=== PATIENT | female | born 1965 | race Caucasian/White ===

== ENCOUNTER 2020-03-21 00:32 | Observation (INO) | payer BC, SELFPAY ==
[2020-03-21] VITALS (17 sets, daily range): BP systolic 94–144; BP diastolic 62–104; PULSE 74–123; RESP 15–22; TEMP 36.2–36.7; O2SAT 7–98; BMI 43.1
--- NOTE | 2020-03-21 00:54 | ECG_ITS ---
Measurements Intervals [place] Rate: 104 P: 62 MT: 147 QRS: 26 QRSD: 85 T: 51 QT: 317 QTc: 418 Interpretive Statements SINUS TACHYCARDIA MINIMAL Q WAVES- INFERIOR LEADS BASELINE ARTIFACT- II, III, AVF BORDERLINE ECG Electronically Signed On 03-21-2020 7:01:52 CDT by Nile Bartlett D.O.
--- NOTE | 2020-03-21 00:55 | ED.NAVMDI ---
HPI - Nausea/Vomiting/Diarrhea General Chief complaint: Nausea/Vomiting/Diarrhea Stated complaint: throwing up blood Time Seen by Provider: 03/21/20 00:40 Source: patient Mode of arrival: ambulatory Limitations: no limitations History of Present Illness HPI Narrative: This patient is a 54 year old female who presents for evaluation of hematemesis. Patient states 2 hours ago she developed nausea and she started throwing up dark blood. She reports multiple episodes. She also noticed dark stool this morning. She has no previous history of PUD, gastritis. She does take aspirin 162 mg daily . She denies abdominal pain, dizziness, chest pain or sob. MD elicited complaint: nausea and vomiting Onset (ago): hour(s) (2) Description of vomiting: bloody Associated nausea: Yes Associated abdominal pain: No Related Data Home Medications Medication Instructions Recorded Confirmed aspirin 162 mg PO DAILY 03/21/20 03/21/20 ibuprofen-diphenhydramine HCl 2 cap PO HS PRN 03/21/20 03/21/20 [Ibuprofen PM] Allergies Allergy/AdvReac Type Severity Reaction Status Date / Time No Known Allergies Allergy Mild Verified 03/21/20 01:53 Review of Systems Review of Systems: All systems reviewed & are unremarkable except as noted in HPI and below Constitutional: Constitutional: Denies chills, Reports fatigue and Denies fever(s) Cardiovascular: Cardiovascular: Denies chest pain Respiratory: Respiratory: Denies cough and Denies dyspnea Gastrointestinal: Gastrointestinal: Denies abdominal pain, Reports nausea and Reports vomiting PMFSH Past Medical History Medical History (Updated 03/21/20 @ 05:18 by Anali Toledo MD) Diverticulitis Surgical History Surgical History Hx of colectomy Family History Family History (Updated 03/21/20 @ 04:35 by Bridget Raygoza RN) Sibling Congestive heart failure Mother Chronic obstructive pulmonary disease Father Lung cancer Social History Social History Smoking status: Never smoker Alcohol intake: current Drinks per week: 2 Alcohol use details: 2 -3 times a week Substance use: never Substance use type: does not use Gender identity (if verbalized by the patient): Female Spiritual care concerns: No Exam Narrative: Exam Narrative: GENERAL: Well-appearing, well-nourished, and in no acute distress. HEAD: Normocephalic, atraumatic EYES: PERRLA and EOMI, conjunctiva clear without discharge THROAT:Mucous membranes moist, Oropharynx normal without erythema, exudate, peritonsillar swelling or fluctuance NECK: Supple, without lymphadenopathy or mass RESPIRATORY: No respiratory distress, Airway patent, Respirations non-labored, Clear to auscultation without rales, rhonchi or wheeze HEART: Regular rate and rhythm. No murmur heard. Normal peripheral pulses. ABDOMEN: Soft, nontender, nondistended, normal active bowel sounds. No masses. No rebound or guarding, No organomegaly. EXTREMITIES: No edema, normal strength with full range of motion. SKIN: Warm, dry, normal color without rash NEURO: Alert and oriented x3. CN 2-12 grossly intact. No focal deficits. PSYCH: Normal mood and affect. GI: Rectal Exam: heme positive stool Course Consultations Consultation #1: I have discussed case with DR. James Finnegna, he will consult and no further recommendations Date: 03/21/20 Time: 02:32 Consultation #2: I have discussed case with DR. Guerra and he accepts admission. Date: 03/21/20 Time: 02:32 Vital Signs Vital signs: Vital Signs Temperature 97.8 F 03/21/20 00:34 Pulse Rate 115 H 03/21/20 00:34 Respiratory Rate 20 03/21/20 00:34 Blood Pressure 144/91 H 03/21/20 00:34 Pulse Oximetry 98 03/21/20 00:34 Temperature 98.0 F 03/21/20 03:40 Pulse Rate 96 03/21/20 03:40 Respiratory Rate 18 03/21/20 03:40 Blood Pressure 116/64 03/21
[2020-03-21 01:26] LABS: Basophils Absolute Auto 0.1 K/mm3 (0.0-0.1); Basophils Percent Auto 0.5 % (0.2-1.2); Eosinophils Absolute Auto 0.1 K/mm3 (0-0.3); Eosinophils Percent Auto 0.6 % (0-4.4); Hematocrit 36.6 % (37.0-47.0); Immature Granulocyte Percent A 0.6 % (0-0.5); Lymphocytes Absolute Auto 3.46 K/mm3 (0.9-3.2); Lymphocytes Percent Auto 21.1 % (18.3-44.2); Mean Corpuscular HGB Conc 32.8 g/dl (32-36); Mean Corpuscular Hemoglobin 31.4 pg (26-34); Mean Corpuscular Volume 95.8 fl (80-100); Mean Platelet Volume 10.4 fl (7.4-10.4); Monocytes Absolute Auto 0.8 K/mm3 (0.1-0.6); Monocytes Percent Auto 5.1 % (2.6-8.5); Neutrophils Absolute Auto 11.8 K/mm3 (1.3-6.7); Neutrophils Percent Auto 72.1 % (45.5-73.1); Platelet Count Result 383 k/mm3 (150-375); Red Blood Count 3.82 M/mm3 (4.2-5.4); Red Cell Distribution Width 12.8 % (11.5-14.5); White Blood Count 16.4 K/mm3 (4.5-10.0)
[2020-03-21] MEDS: ONDANSETRON INJ 4 MG/2 ML VIAL IV PUSH (01:29)
[2020-03-21] MEDS: PANTOPRAZOLE SODIUM IV 40 MG VIAL 80 MG IV PUSH (01:30)
[2020-03-21] MEDS: SODIUM CHLORIDE 0.9% IV 1,000 ML 999 ML IV CONT (01:30)
[2020-03-21 01:32] LABS: Prothrombin Time 12.7 Seconds (11.1-14.7)
[2020-03-21 01:33] LABS: Partial Thromboplastin Time 24.8 SECONDS (22.3-36.8)
[2020-03-21 01:41] LABS: Alanine Aminotransferase 21 U/L (4-35); Albumin Level 4.5 g/dL (3.5-5.1); Alkaline Phosphatase 92 U/L (38-126); Anion Gap 9 mmol/L (8-16); Aspartate Amino Transferase 32 U/L (14-36); Bilirubin,Total 0.6 mg/dL (0.2-1.3); Blood Urea Nitrogen 34 mg/dL (7-17); Calcium 9.4 mg/dL (8.4-10.2); Carbon Dioxide 22 mmol/L (22-30); Chloride 106 mmol/L (98-107); Estimated Glomerular Filt Rate > 60; Glucose 143 mg/dL (65-105); Potassium 4.5 mmol/L (3.4-5.0); Sodium 137 mmol/L (137-145)
--- NOTE | 2020-03-21 03:38 | PC.NURSE ---
This patient, Chaya Muñoz, was admitted to 3 [facility] Surg Room 307-01. Patient/family oriented to hospital policies and general routines including ID bracelet, bed and alarms, visiting hours, pain management, procedures, bathroom and other care routines, personal items, smoking policy, room service/diet, and visiting hours. Valuables list has been completed. Information on how to activate the Rapid Response Team has been discussed. Patient/Family are encouraged to report perceived risks to care and to ask questions if they do not understand what they are told or what they should do.
[2020-03-21 03:42] LABS: Hematocrit 32.6 % (37.0-47.0); Hemoglobin 10.7 g/dL (12.0-15.0)
[2020-03-21] MEDS: LACTATED RINGERS 1,000 ML 125 ML IV CONT (03:45)
[2020-03-21 08:42] LABS: Hematocrit 30.4 % (37.0-47.0)
--- NOTE | 2020-03-21 08:59 | WPDGICN ---
Assessment and Plan Assessment and plan (1) Melena: Code(s): K92.1 - Melena Status: Acute Assessment and Plan: will proceed with urgent EGD, continue with ppi and discontinue nsaid's and aspirin trend h/h and continue with supportive care (2) Acute blood loss anemia: Code(s): D62 - Acute posthemorrhagic anemia Status: Acute Assessment and Plan: here with upper gib, continue to monitor (3) Coffee ground emesis: Code(s): K92.0 - Hematemesis Status: Acute Assessment and Plan: already on ppi egd to assess if esophagitis, ulcers, etc GI Consult Note Consult date/time: 03/21/20 08:59 Reason for consult: hematemesis and melena HPI: Chaya Muñoz is a 54 year old female with history of diverticulitis s/p partial colectomy here with new onset of coffee ground emesis last night and also dark tarry stools consistent with melena. She never had GIB. She uses aspirin and also normally takes motrin-pm for sleeping. Denies abdominal pain. Never had EGD. Her Hb was 12 and repeat 10, bun 34, normal inr and lft's, platelets 383. She is hemodynamically stable now and was admitted to the floor. Review of Systems Constitutional: Constitutional: Reports fatigue and Denies headache(s) Eyes: Eyes: Denies blurry vision ENT: Reports Normal hearing present, Denies headache(s) and Denies neck pain Cardiovascular: Cardiovascular: Denies chest pain and Denies dyspnea Respiratory: Respiratory: Denies dyspnea Gastrointestinal: Gastrointestinal: Reports melena, Reports nausea and Reports vomiting Genitourinary: Genitourinary: Denies dysuria Musculoskeletal: Musculoskeletal: Denies neck pain Integumentary/Breasts: Skin/Breast: Denies dry skin Neurologic: Reports Normal hearing present, Denies headache(s) and Denies weakness Psychiatric: Psychiatric: Denies anxiety Endocrine: Endocrine: Denies change in body appearance Hematologic/Lymphatic: Hematologic/Lymphatic: Denies easy bleeding Allergic/Immunologic: Allergic/Immunologic: Denies urticaria PMF Family History Family History (Updated 03/21/20 @ 04:35 by Bridget Raygoza RN) Sibling Congestive heart failure Mother Chronic obstructive pulmonary disease Father Lung cancer Social History Social History Smoking status: Never smoker Alcohol intake: current Drinks per week: 2 Alcohol use details: 2 -3 times a week Substance use: never Substance use type: does not use Gender identity (if verbalized by the patient): Female Spiritual care concerns: No Meds Home Medications and Allergies Home Medications Medication Instructions Recorded Confirmed Type aspirin 162 mg PO DAILY 03/21/20 03/21/20 History ibuprofen-diphenhydramine HCl 2 cap PO HS PRN 03/21/20 03/21/20 History [Ibuprofen PM] Allergies Allergy/AdvReac Type Severity Reaction Status Date / Time No Known Allergies Allergy Mild Verified 03/21/20 01:53 Vital Signs Vital Signs - 24 hr 03/21/20 00:34 03/21/20 01:20 03/21/20 01:23 Temperature 97.8 F Pulse Rate 115 H 106 H 110 H Respiratory Rate 20 Blood Pressure 144/91 H 139/88 144/104 H Pulse Oximetry 98 97 03/21/20 01:25 03/21/20 01:27 03/21/20 01:28 Temperature Pulse Rate 123 H Respiratory Rate Blood Pressure 144/104 H 94/69 L 94/69 L Pulse Oximetry 97 98 03/21/20 01:30 03/21/20 02:01 03/21/20 03:21 Temperature Pulse Rate 103 H 100 Respiratory Rate 19 16 Blood Pressure 117/84 117/76 117/86 Pulse Oximetry 96 96 97 03/21/20 03:40 Temperature 98.0 F Pulse Rate 96 Respiratory Rate 18 Blood Pressure 116/64 Pulse Oximetry 98 Exam Const: General: no acute distress Other: she is resting in bed HENMT: General nose exam: Normal nares present Eyes: General: appearance normal, both eyes and all related structures Neck: Neck: no JVD Resp: Auscultation: clear to auscultation
[2020-03-21] MEDS: LACTATED RINGERS 1,000 ML 150 ML IV CONT (10:26)
--- NOTE | 2020-03-21 10:37 | WPDANESEPPF ---
Anes - Initial Pre Proc Eval Procedure: Operation Date: 03/21/20 11:15 Proposed Procedures p Esophagogastroduodenoscopy - Luiz Baez MD Date/Time: 03/21/20 10:37 Surgeon: Lito Aranda PA-C Pre Op Diagnosis: hematemesis Patient Data Age: 54 Gender: F Height: 5 ft 1 in Weight: 103.6 kg Last Vital Signs Temp 98 F 03/21/20 10:29 Pulse 87 03/21/20 10:29 Resp 20 03/21/20 10:29 BP 120/70 03/21/20 10:29 Pulse Ox 97 03/21/20 10:29 Allergies Allergy/AdvReac Type Severity Reaction Status Date / Time No Known Allergies Allergy Mild Verified 03/21/20 10:27 Home Medications Medication Instructions Recorded Confirmed Type aspirin 162 mg PO DAILY 03/21/20 03/21/20 History ibuprofen-diphenhydramine HCl 2 cap PO HS PRN 03/21/20 03/21/20 History [Ibuprofen PM] Laboratory Tests 03/21/20 03/21/20 03/21/20 01:17 01:17 01:17 WBC 16.4 K/mm3 H K/mm3 (4.5-10.0) RBC 3.82 M/mm3 L M/mm3 (4.2-5.4) Hgb 12.0 g/dL g/dL (12.0-15.0) Hct 36.6 % L % (37.0-47.0) MCV 95.8 fl fl (80-100) MCH 31.4 pg pg (26-34) MCHC 32.8 g/dl g/dl (32-36) RDW 12.8 % % (11.5-14.5) Plt Count 383 k/mm3 H k/mm3 (150-375) MPV 10.4 fl fl (7.4-10.4) Immature Gran % (Auto) 0.6 % H % (0-0.5) Neut % (Auto) 72.1 % % (45.5-73.1) Lymph % (Auto) 21.1 % % (18.3-44.2) [place] % (Auto) 5.1 % % (2.6-8.5) Eos % (Auto) 0.6 % % (0-4.4) Baso % (Auto) 0.5 % % (0.2-1.2) Lymph # (Auto) 3.46 K/mm3 H K/mm3 (0.9-3.2) [place] # (Auto) 0.8 K/mm3 H K/mm3 (0.1-0.6) Eos # (Auto) 0.1 K/mm3 K/mm3 (0-0.3) Baso # (Auto) 0.1 K/mm3 K/mm3 (0.0-0.1) Abs Immat Gran (auto) 0.10 K/mm3 H K/mm3 (0.00-0.031) Absolute Neuts (auto) 11.8 K/mm3 H K/mm3 (1.3-6.7) Absolute Nucleated RBC 0.0 K/mm3 K/mm3 (0.0-0.012) Nucleated RBC % 0.0 % % (0.0-0.2) PT 12.7 Seconds Seconds (11.1-14.7) INR 1.0 APTT 24.8 SECONDS SECONDS (22.3-36.8) Sodium 137 mmol/L mmol/L (137-145) Potassium 4.5 mmol/L mmol/L (3.4-5.0) Chloride 106 mmol/L mmol/L (98-107) Carbon Dioxide 22 mmol/L mmol/L (22-30) Anion Gap 9 mmol/L mmol/L (8-16) BUN 34 mg/dL H mg/dL (7-17) Creatinine 0.70 mg/dL mg/dL (0.7-1.0) Estim Creat Clear Calc Not Reportable Estimated GFR > 60 (59 - ) Glucose 143 mg/dL H mg/dL (65-105) Calcium 9.4 mg/dL mg/dL (8.4-10.2) Total Bilirubin 0.6 mg/dL mg/dL (0.2-1.3) AST 32 U/L U/L (14-36) ALT 21 U/L U/L (4-35) Alkaline Phosphatase 92 U/L U/L (38-126) Total Protein 8.0 g/dL g/dL (6.3-8.2) Albumin 4.5 g/dL g/dL (3.5-5.1) Blood Type Antibody Screen 03/21/20 03/21/20 03/21/20 01:23 03:17 08:01 WBC RBC Hgb 10.7 g/dL L g/dL 10.0 g/dL L g/dL (12.0-15.0) (12.0-15.0) Hct 32.6 % L % 30.4 % L % (37.0-47.0) (37.0-47.0) MCV MCH MCHC RDW Plt Count MPV Immature Gran % (Auto) Neut % (Auto) Lymph % (Auto) [place] % (Auto) Eos % (Auto) Baso % (Auto) Lymph # (Auto) [place] # (Auto) Eos # (Auto) Baso # (Auto) Abs Immat Gran (auto) Absolute Neuts (auto) Absolute Nucleated RBC Nucleated RBC % PT INR APTT Sodium Potassium Chloride Carbon Dioxide Anion Gap BUN Creati
--- NOTE | 2020-03-21 11:22 | PC.NURSE ---
pt left to endo at 1010.
--- NOTE | 2020-03-21 13:34 | PM.IMHP ---
H&P: HPI History of Present Illness Date/Time: 03/21/20 13:34 Chief complaint: hematemesis Narrative: Chaya Muñoz is a pleasant 54 year old female with history of diverticulitis s/p colectomy who presented to the ED just after midnight on 03/21 with complaints of hematemesis. Patient states that this started roughly at 8:45 pm on 03/20. She states it started as light red in color then turned to dark and coffee-ground appearing emesis. She also noted that her stools were dark in color the morning of 03/20, then was dark and tarry on evening of 03/21. She notes taking daily 162 aspirin and daily motrin-pm. She drinks 1-2 alcoholic beverages a week. Denies history of PUD or GIB. She denies any nausea or abdominal surrounding her episodes. Her hematemesis has since resolved. She had a EGD per Dr. Ramirez which found severe erosive esophagitis and gastropathy; biopsies were taken. Patient has no complaints at the moment. Denies f/c/s, myalgias/arthralgias, headaches, dizziness, lightheadedness, cp/palpitations, sob/cough, current n/v/d/c, abd pain, dysuria, hematuria, cloudy urine, calf pain/swelling. Review of Systems Review of Systems: All systems reviewed & are unremarkable except as noted in HPI and below PMFSH Past Medical History Medical History Acute blood loss anemia Coffee ground emesis Diverticulitis Melena Surgical History Surgical History Hx of colectomy Family History Family History Sibling Congestive heart failure Mother Chronic obstructive pulmonary disease Father Lung cancer Social History Social History Social History: Patient lives at home with her long time boyfriend. She designates Eddie Velez as her surrogate MDM. She wishes to be [employer]. 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 Her PCP is Dr. Ke Munson Smoking status: Never smoker Alcohol intake: current Drinks per week: 2 Alcohol use details: 2 -3 times a week Substance use: never Substance use type: does not use Gender identity (if verbalized by the patient): Female Spiritual care concerns: No Meds Home Medications and Allergies Home Medications Medication Instructions Recorded Confirmed Type aspirin 162 mg PO DAILY 03/21/20 03/21/20 History ibuprofen-diphenhydramine HCl 2 cap PO HS PRN 03/21/20 03/21/20 History [Ibuprofen PM] Allergies Allergy/AdvReac Type Severity Reaction Status Date / Time No Known Allergies Allergy Mild Verified 03/21/20 10:27 Vital Signs Last Vital Signs Temp 98 F 03/21/20 10:29 Pulse 76 03/21/20 12:26 Resp 18 03/21/20 12:26 BP 108/63 03/21/20 12:26 Pulse Ox 7 L 03/21/20 12:26 Exam Narrative: Exam Narrative: Patient lying supine in bed with head raised at time of visit Const: General: cooperative, comfortable, no acute distress, well developed, alert and awake Nutritional Appearance: obese Orientation/consciousness: patient oriented x3 HENMT: Head: normocephalic and atraumatic General nose exam: Normal nares present Face and sinus: face symmetric Mouth: Yes moist mucous membranes Eyes: General: appearance normal, both eyes and all related structures EOM: EOMs intact bilaterally Neck: Neck: trachea midline and supple Resp: Effort & Inspection: normal respiratory effort Auscultation: clear to auscultation bilaterally Cardio: Rate: regular rate Rhythm: regular rhythm Heart sounds: no murmurs GI: Inspection: obesity GI Palp: No abdominal tenderness and Yes Soft to palpation Auscultation: normal bowel sounds Skin: General skin exam: normal color and no rashes or lesions noted Neuro: General: patient oriented x3, moves all extremities and no focal motor deficits
--- NOTE | 2020-03-21 14:35 | PC.NURSE ---
pt arrived back to unit at 1240 a/o x3, no distress, gag reflex intact ice water given. denies any pain.
[2020-03-21 15:14] LABS: Hematocrit 29.1 % (37.0-47.0); Hemoglobin 9.8 g/dL (12.0-15.0)
[2020-03-21] MEDS: SUCRALFATE SUSP 100 MG/ML 10 ML UDC 1000 MG PO ×2 (17:07→20:46)
[2020-03-21] MEDS: PANTOPRAZOLE SODIUM IV 40 MG VIAL IV PUSH (20:46)
[2020-03-21 22:52] LABS: Glucose Point of Care 102 (65-105)
[2020-03-22] MEDS: SUCRALFATE SUSP 100 MG/ML 10 ML UDC 1000 MG PO ×2 (05:48→11:31)
[2020-03-22 06:00] VITALS: BP 127/78; PULSE 75; RESP 16; TEMP 36.6; O2SAT 96
[2020-03-22 06:11] LABS: Basophils Absolute Auto 0.1 K/mm3 (0.0-0.1); Basophils Percent Auto 0.6 % (0.2-1.2); Eosinophils Absolute Auto 0.3 K/mm3 (0-0.3); Eosinophils Percent Auto 2.8 % (0-4.4); Hematocrit 29.9 % (37.0-47.0); Hemoglobin 9.8 g/dL (12.0-15.0); Immature Granulocyte Absolute 0.03 K/mm3 (0.00-0.031); Immature Granulocyte Percent A 0.3 % (0-0.5); Lymphocytes Absolute Auto 3.95 K/mm3 (0.9-3.2); Lymphocytes Percent Auto 42.7 % (18.3-44.2); Mean Corpuscular HGB Conc 32.8 g/dl (32-36); Mean Corpuscular Hemoglobin 31.6 pg (26-34); Mean Corpuscular Volume 96.5 fl (80-100); Mean Platelet Volume 10.3 fl (7.4-10.4); Monocytes Percent Auto 10.4 % (2.6-8.5); Neutrophils Percent Auto 43.2 % (45.5-73.1); Platelet Count Result 291 k/mm3 (150-375); Red Cell Distribution Width 13.1 % (11.5-14.5); White Blood Count 9.3 K/mm3 (4.5-10.0)
[2020-03-22 06:32] LABS: Anion Gap 5 mmol/L (8-16); Blood Urea Nitrogen 15 mg/dL (7-17); Calcium 8.6 mg/dL (8.4-10.2); Carbon Dioxide 27 mmol/L (22-30); Chloride 105 mmol/L (98-107); Estimated CRCL calculation 77 ml/min; Estimated Glomerular Filt Rate > 60; Glucose 103 mg/dL (65-105); Potassium 4.2 mmol/L (3.4-5.0); Sodium 137 mmol/L (137-145)
[2020-03-22] MEDS: PANTOPRAZOLE SODIUM IV 40 MG VIAL IV PUSH (08:56)
--- NOTE | 2020-03-22 11:29 | WPDGIPROGNO ---
Progress Note: A&P Assessment and Plan (1) Melena: Code(s): K92.1 - Melena Status: Acute Assessment and Plan: no more bleeding, stable hb now EGD showed severe erosive esophagitis, also erosive gastritis probably nsaid's related she can go home with carafate for a month also ppi bid follow up office in 3-4 weeks and EGD in 4 months to assess for healing (2) Erosive esophagitis: Code(s): K22.10 - Ulcer of esophagus without bleeding Status: Acute (3) Erosive gastritis: Code(s): K29.60 - Other gastritis without bleeding Status: Acute (4) Coffee ground emesis: Code(s): K92.0 - Hematemesis Status: Acute Assessment and Plan: resolved (5) Acute blood loss anemia: Code(s): D62 - Acute posthemorrhagic anemia Status: Acute Subjective Date/time seen: 03/22/20 11:29 Interval history: she is eating, no pain and tolerating diet Review of Systems Review of Systems: All systems reviewed & are unremarkable except as noted in HPI and below Exam Const: General: comfortable and no acute distress HENMT: General nose exam: Normal nares present Eyes: General: appearance normal, both eyes and all related structures Neck: Neck: no JVD Resp: Auscultation: clear to auscultation bilaterally Cardio: Rate: regular rate Rhythm: regular rhythm GI: Inspection: non-distended GI Palp: Yes Soft to palpation Skin: General skin exam: normal color Neuro: General: gait normal Speech: normal speech Extrem: General: normal to inspection Psych: Mental Status: mental status grossly normal Objective Data Vital Signs Vital Signs: Vital Signs - 24 hr 03/21/20 12:06 03/21/20 12:16 03/21/20 12:26 Temperature Pulse Rate 87 77 76 Respiratory Rate 22 H 15 18 Blood Pressure 111/68 106/62 108/63 Pulse Oximetry 97 98 7 L 03/21/20 14:00 03/21/20 14:51 03/21/20 22:00 Temperature 97.8 F 97.8 F 97.1 F L Pulse Rate 79 79 74 Respiratory Rate 18 18 16 Blood Pressure 125/68 125/68 136/90 Pulse Oximetry 96 96 97 03/22/20 06:00 Temperature 97.8 F Pulse Rate 75 Respiratory Rate 16 Blood Pressure 127/78 Pulse Oximetry 96 Intake/Output Intake/Output: Intake & Output 03/19/20 03/20/20 03/21/20 03/22/20 23:59 23:59 23:59 23:59 Intake Total 1950 500 Output Total 1900 900 Balance 50 -400 Meds/Results Medications: Active Medications Generic Name Dose Route Start Last Admin Trade Name Freq PRN Reason Stop Dose Admin Ondansetron HCl 4 mg 03/21/20 02:29 Zofran Inj IV PUSH Q4H PRN Nausea Pantoprazole Sodium 40 mg 03/21/20 21:00 03/22/20 08:56 Protonix Iv IV PUSH 40 mg Q12HR CARMEN Administration Sucralfate 1,000 mg 03/21/20 16:30 03/22/20 05:48 Carafate PO 1,000 mg ACHS CARMEN Administration Labs Labs: Laboratory Results - last 24 hr 03/21/20 03/21/20 03/22/20 14:36 20:45 05:24 WBC RBC Hgb 9.8 L Hct 29.1 L MCV MCH MCHC RDW Plt Count MPV Immature Gran % (Auto) Neut % (Auto) Lymph % (Auto) [place] % (Auto) Eos % (Auto) Baso % (Auto) Lymph # (Auto) [place] # (Auto) Eos # (Auto) Baso # (Auto) Abs Immat Gran (auto) Absolute Neuts (auto) Absolute Nucleated RBC Nucleated RBC % Sodium 137 Potassium 4.2 Chloride 105 Carbon Dioxide 27 Anion Gap 5 L BUN 15 D Creatinine 0.80 Estim Creat Clear Calc 77 Estimated GFR > 60 Glucose 103 POC Capillary Glucose 102 Calcium 8.6 03/22/20 05:24 WBC 9.3 RBC 3.10 L Hgb 9.8 L Hct 29.9 L MCV 96.5 MCH 31.6 MCHC 32.8 RDW 13.1 Plt Count 291 MPV 10.3 Immature Gran % (Auto) 0.3 Neut % (Auto) 43.2 L Lymph % (Auto) 42.7 [place] % (Auto) 10.4 H Eos % (Auto) 2.8 Baso % (Auto) 0.6 Lymph # (Auto) 3.95 H [place] # (Auto) 1.0 H Eos # (Auto) 0.3 Baso # (Auto) 0.1 Abs Immat Gran (auto) 0.03 Absolute Neuts (auto) 4.0 A
--- NOTE | 2020-03-22 11:55 | PM.DS ---
DS: Admitting Diagnosis Admitting Diagnosis Admitting Diagnosis: hematemesis DS: Discharge Diagnosis Discharge Diagnosis (1) GI bleed: Code(s): K92.2 - Gastrointestinal hemorrhage, unspecified Status: Acute Assessment and Plan: Likely due to #2. Appears to have resolved. H&H appear to be stable. Stool today appeared production control clerk in color; no hematemesis since arrival. Tolerating PO. Okay for discharge from GI standpoint CBC in 1 week F/u with PCP and Dr. Ramirez (2) Erosive esophagitis: Code(s): K22.10 - Ulcer of esophagus without bleeding Status: Acute Assessment and Plan: Found on EGD on 03/[address] Ramirez. No active bleeding currently GI following and appreciate recommendation; okay for discharge from GI standpoint PPI BID and Carafate ACHS per GI rec at discharge Monitor H&H in 1 week F/u with GI Diet advanced per GI (3) Acute blood loss anemia: Code(s): D62 - Acute posthemorrhagic anemia Status: Acute Assessment and Plan: Likely due to above. No active bleeding on EGD today. Hgb 9.8 this morning; stable. Blood loss appears to have stopped Monitor CBC in 1 week Hold aspirin and NSAID at discharge (4) Melena: Code(s): K92.1 - Melena Status: Acute Assessment and Plan: Likely secondary to acute GI blood loss anemia from likely erosive esophagitis. Appears to have resolved Please see above a/p Monitor (5) Hematemesis: Qualifiers: Nausea presence: with nausea Qualified Code(s): K92.0 - Hematemesis Code(s): K92.0 - Hematemesis Status: Acute Assessment and Plan: Likely secondary to acute GI blood loss anemia from likely erosive esophagitis. Appears to have resolved Please see above a/p Monitor (6) Leukocytosis: Code(s): D72.829 - Elevated white blood cell count, unspecified Status: Acute Assessment and Plan: WBC improved to 9.3k. No signs/symptoms of active infection. Possible leukemoid reaction 2/2 vomiting? CBC Monitor for signs/symptoms of infection DS: Summary Hospital Course Reason for hospitalization: upper GI bleed, acute blood loss anemia Hospital Course: Patient is a 54 yo F with history of diverticulitis s/p colectomy who presented to the ED just after midnight on 03/21 with complaints of hematemesis. She has a significant NSAID and ASA use. While in the ED, she was found to be slightly anemic and GI bleed was suspected. Dr. Baez consulted from the ED for further input. Patient admitted under this setting. Please see H&P for further details. Presenting VS: Temp Pulse Resp BP Pulse Ox 97.8 F 115 H 20 144/91 H 98 03/21/20 00:34 03/21/20 00:34 03/21/20 00:34 03/21/20 00:34 03/21/20 00:34 Presenting Pertinent labs: WBC 16.4k (9.3 on discharge), H&H 12.0/36.6 (then 10.7/32.6), MCV 95.8. CBC, chemistry, coag otherwise unremarkable. Micro: none Imaging: none ECG: Interpretive Statements SINUS TACHYCARDIA MINIMAL Q WAVES- INFERIOR LEADS BASELINE ARTIFACT- II, III, AVF BORDERLINE ECG Patient was admitted to the hospitalist service for further evaluation. She was placed on a PPI BID. Patient underwent an EGD on 03/[address] Ramirez with findings of severe, Grade IV, reflux esophagitis (non-bleeding), as well as gastropathy. She was then placed on carafate ACHS per GI recommendations. Her H&H remained stable and she had no signs of further blood loss. Patient was to continue BID PPI and carafate ACHS and to follow up with GI in several weeks and then likely EGD in 4 months to ensure healing. Patient's diet was resumed which she tolerated well. She was to complete CBC in 1 week for further monitoring. It was recommended she hold
== END 2020-03-22 13:15 | disposition home or self-care (01) ==
LOC: ANHED 00:54 → ANH3MEDSUR 03:14
PROVIDERS: Internal Medicine Gastroenterology; Physician Assistant; Admitting Provider Family Medicine; Emergency Provider General Practice; Visit Provider Family Medicine
PROC: 0DJ08ZZ Inspection of Upper Intestinal Tract, Via Natural or Artificial Opening Endoscopic (ICD-10-PCS; CPT 43235; principal; 2020-03-21 11:15)
DX: K22.10 Ulcer of esophagus without bleeding (principal); D62 Acute posthemorrhagic anemia; E66.01 Morbid (severe) obesity due to excess calories; Z68.41 Body mass index [BMI] 40.0-44.9, adult; D72.829 Elevated white blood cell count, unspecified; Z90.49 Acquired absence of other specified parts of digestive tract; Z79.1 Long term (current) use of non-steroidal anti-inflammatories (NSAID)
CPT/HCPCS: 43239; 36415; 80048; 80053; 85014; 85018; 85025; 85610; 85730; 86850; 86900; 86901; 87081; 88305; 93005; 96361; 96365; 96366; 96375; 96376; 99285; A9270; C9113; G0378; J2405; J2704; J7030; J7060; J7120

== ENCOUNTER 2020-04-12 13:59 | Outpatient (CLI) | payer BC, SELFPAY ==
[2020-04-12 14:38] LABS: Hematocrit 32.2 % (37.0-47.0); Hemoglobin 10.3 g/dL (12.0-15.0); Mean Corpuscular Hemoglobin 30.2 pg (26-34); Mean Corpuscular Volume 94.4 fl (80-100); Mean Platelet Volume 9.8 fl (7.4-10.4); Platelet Count Result 356 k/mm3 (150-375); Red Blood Count 3.41 M/mm3 (4.2-5.4); Red Cell Distribution Width 12.5 % (11.5-14.5); White Blood Count 10.3 K/mm3 (4.5-10.0)
== END 2020-04-12 14:00 | disposition home or self-care (01) ==
LOC: ANHLAB 14:04
PROVIDERS: Visit Provider Physician Assistant
DX: D72.829 Elevated white blood cell count, unspecified (principal); D62 Acute posthemorrhagic anemia; K22.10 Ulcer of esophagus without bleeding; K92.2 Gastrointestinal hemorrhage, unspecified
CPT/HCPCS: 36415; 85027

== ENCOUNTER 2020-06-03 01:37 | Outpatient (CLI) | payer BC, SELFPAY ==
[2020-06-03 22:13] LABS: SARS-CoV-2 RNA PCR Negative
== END 2020-06-03 01:38 | disposition home or self-care (01) ==
LOC: ANHCOVIDDT 01:37
PROVIDERS: Visit Provider Internal Medicine Gastroenterology
DX: Z01.812 Encounter for preprocedural laboratory examination (principal); Z20.828 Contact with and (suspected) exposure to other viral communicable diseases
CPT/HCPCS: 87635; C9803; U0003

== ENCOUNTER 2020-06-06 00:34 | Day surgery (SDC) | payer BC, SELFPAY ==
[2020-05-31 13:53] VITALS: BMI 35.8
--- NOTE | 2020-06-06 08:51 | P.PNAN_ITS ---
Anes - Initial Pre Proc Eval Procedure: Operation Date: 06/06/20 10:45 Proposed Procedures p Esophagogastroduodenoscopy & Screening Colonoscopy - Luiz Garcia MD Date/Time: 06/06/20 08:51 Surgeon: Luiz Baez MD Pre Op Diagnosis: Ulcer w/o Bleeding/ Neoplasm Screening Patient Data Age: 54 Gender: F Height: 1.55 m Weight: 86 kg Allergies Allergy/AdvReac Type Severity Reaction Status Date / Time acetaminophen [From Vicodin] AdvReac Mild Nausea and Verified 06/06/20 09:50 Vomiting hydrocodone [From Vicodin] AdvReac Mild Nausea and Verified 06/06/20 09:50 Vomiting Home Medications Medication Instructions Recorded Confirmed Type pantoprazole 40 mg tablet,delayed 40 mg PO Q12H #60 tablet 04/20/20 06/06/20 Rx release peg 3350-electrolytes 236 240 ml PO Q10M #4000 ml 05/12/20 Rx gram-22.74 gram-6.74 gram-5.86 gram solution Patient hx anesthesia problems: none Family hx anesthesia problems: none PMFSH Past Medical History Medical History (Updated 06/06/20 @ 08:52 by Maldonado Hugo MD) Acute blood loss anemia Coffee ground emesis Colon cancer screening Colon, diverticulosis Diverticulitis Erosive gastritis Melena Obesity Surgical History Surgical History Hx of colectomy Family History Family History Sibling Congestive heart failure Mother Chronic obstructive pulmonary disease Father Lung cancer Social History Social History Social History: Patient lives at home with her long time boyfriend. She designates Eddie Velez as her surrogate MDM. She wishes to be Full [employer]. 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 Her PCP is Dr. Ke Munson Smoking status: Never smoker Alcohol intake: current Drinks per week: 4 Substance use: never Substance use type: does not use Living arrangements: with family Gender identity (if verbalized by the patient): Female Spiritual care concerns: No Anes - Eval Final PreProcedure Day of Procedure 06/06/20 08:51 Patient weight: obese Heart: regular rate and rhythm Lungs: clear to auscultation and normal air movement Airway: Mallampati scale class II Neurological: alert and oriented Last oral intake: >/= 8 hours ASA classification: III Emergent: no Anesthetic plan: proceed Anesthesia type and monitoring: general GIVS Informed Consent: The patient's anesthetic plan and its attendant risks and benefits were discussed with the patient/family/POA. Questions were solicited a nd answers provided to the satisfaction of the patient/family/POA.
[2020-06-06 09:52] VITALS: BP 135/94; PULSE 83; RESP 20; TEMP 36.6; O2SAT 99; BMI 40.4
[2020-06-06] MEDS: LACTATED RINGERS 1,000 ML 150 ML IV CONT (10:00)
--- NOTE | 2020-06-06 11:08 | PM.HPGS ---
History of Present Illness History of Present Illness Consent: Risks, benefits, and alternatives have been discussed and questions answered. Patient agrees to proceed with procedure. Chief complaint: Ulcer w/o Bleeding/ Neoplasm Screening Narrative: Chaya Muñoz is a 54 year old female with previous GIB due to severe esophagitis, no more issues since ppi bid. Also due to have a colonoscopy Review of Systems Constitutional: Constitutional: Denies headache(s) and Denies weakness Eyes: Eyes: Denies blurry vision ENT: Reports Normal hearing present, Denies headache(s) and Denies neck pain Cardiovascular: Cardiovascular: Denies chest pain and Denies dyspnea Respiratory: Respiratory: Denies dyspnea Gastrointestinal: Gastrointestinal: Reports no additional gastrointestinal complaints Genitourinary: Genitourinary: Denies dysuria Musculoskeletal: Musculoskeletal: Denies neck pain Integumentary/Breasts: Skin/Breast: Denies dry skin Neurologic: Reports Normal hearing present, Denies headache(s) and Denies weakness Psychiatric: Psychiatric: Denies anxiety Endocrine: Endocrine: Denies change in body appearance Hematologic/Lymphatic: Hematologic/Lymphatic: Denies easy bleeding Allergic/Immunologic: Allergic/Immunologic: Denies urticaria PMFSH Past Medical History Medical History (Updated 06/06/20 @ 08:52 by Maldonado Hugo MD) Acute blood loss anemia Coffee ground emesis Colon cancer screening Colon, diverticulosis Diverticulitis Erosive gastritis Melena Obesity Surgical History Surgical History Hx of colectomy Family History Family History Sibling Congestive heart failure Mother Chronic obstructive pulmonary disease Father Lung cancer Social History Social History Social History: Patient lives at home with her long time boyfriend. She designates Eddie Velez as her surrogate MDM. She wishes to be Full [employer]. 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 Her PCP is Dr. Ke Munson Smoking status: Never smoker Alcohol intake: current Drinks per week: 4 Substance use: never Substance use type: does not use Living arrangements: with family Gender identity (if verbalized by the patient): Female Spiritual care concerns: No Meds Home Medications and Allergies Home Medications Medication Instructions Recorded Confirmed Type pantoprazole 40 mg tablet,delayed 40 mg PO Q12H #60 tablet 04/20/20 06/06/20 Rx release peg 3350-electrolytes 236 240 ml PO Q10M #4000 ml 05/12/20 Rx gram-22.74 gram-6.74 gram-5.86 gram solution Allergies Allergy/AdvReac Type Severity Reaction Status Date / Time acetaminophen [From Vicodin] AdvReac Mild Nausea and Verified 06/06/20 09:50 Vomiting hydrocodone [From Vicodin] AdvReac Mild Nausea and Verified 06/06/20 09:50 Vomiting Vital Signs Vital Signs - 24 hr 06/06/20 09:52 Temperature 97.9 F Pulse Rate 83 Respiratory Rate 20 Blood Pressure 135/94 H Pulse Oximetry 99 Exam Const: General: comfortable and no acute distress HENMT: General nose exam: Normal nares present Eyes: General: appearance normal, both eyes and all related structures Neck: Neck: no JVD Resp: Auscultation: clear to auscultation bilaterally Cardio: Rate: regular rate Rhythm: regular rhythm GI: Inspection: non-distended GI Palp: Yes Soft to palpation Skin: General skin exam: normal color Neuro: General: gait normal Speech: normal speech Extrem: General: normal to inspection Psych: Mental Status: mental status grossly normal Assessment and Plan Assessment and plan (1) Erosive gastritis: Code(s): K29.60 - Other gastritis without bleeding Status: Acute Assessment and Plan: egd to assess for healing o
[2020-06-06 11:40] VITALS: BP 118/80; PULSE 73; RESP 16; O2SAT 97
[2020-06-06 11:50] VITALS: BP 124/80; PULSE 70; RESP 16; O2SAT 99
[2020-06-06 12:00] VITALS: BP 128/89; PULSE 73; RESP 16; O2SAT 99
== END 2020-06-06 12:27 | disposition home or self-care (01) ==
PROVIDERS: PCP Physician Assistant Medical; Visit Provider Internal Medicine Gastroenterology
PROC: 0DJ08ZZ Inspection of Upper Intestinal Tract, Via Natural or Artificial Opening Endoscopic (ICD-10-PCS; CPT 43235; principal; 2020-06-06 10:45)
DX: Z12.11 Encounter for screening for malignant neoplasm of colon (principal); K57.30 Diverticulosis of large intestine without perforation or abscess without bleeding; Z98.0 Intestinal bypass and anastomosis status; Z90.49 Acquired absence of other specified parts of digestive tract; Z87.19 Personal history of other diseases of the digestive system; K21.9 Gastro-esophageal reflux disease without esophagitis; K44.9 Diaphragmatic hernia without obstruction or gangrene; E66.01 Morbid (severe) obesity due to excess calories; Z68.41 Body mass index [BMI] 40.0-44.9, adult
CPT/HCPCS: 45378; 43239; 88305; 88342; J7120